=== PATIENT | male | born 1940 | race Caucasian/White ===

== ENCOUNTER 2020-05-02 19:09 | Emergency (ER) | payer OTHER ==
[~2020-05-02] VITALS: Ht 180.3 cm; Wt 99.8 kg
[2020-05-02] MEDS ORDERED: ENALAPRIL MALEA20 MG (19:26)
[2020-05-02] MEDS ORDERED: DYRENIUM50 MG (19:27)
[2020-05-02] MEDS ORDERED: CLONAZEPAM1 MG (19:27)
[2020-05-02] MEDS ORDERED: CYMBALTA60 MG (19:27)
[2020-05-02] MEDS ORDERED: TENORMIN25 MG (19:27)
[2020-05-02] MEDS ORDERED: ASPIR 8181 MG (19:27)
[2020-05-02] MEDS ORDERED: TRAZODONE HCL150 MG (19:28)
[2020-05-02] MEDS ORDERED: [UNRECOGNIZED DRUG - OTHER] (19:31)
== END 2020-05-02 23:59 | disposition home or self-care (01) ==
LOC: ER 19:09
DX: K29.60 Other gastritis without bleeding (principal); I16.1 Hypertensive emergency; I10 Essential (primary) hypertension; R51 Headache

== ENCOUNTER 2024-06-05 21:14 | Emergency (ER) | payer OTHER ==
[~2024-06-05] VITALS: Ht 188 cm; Wt 113.4 kg
[~2024-06-05 21:14] MED LIST: ASPIR 8181 MG; CLONAZEPAM1 MG; CYMBALTA60 MG; DYRENIUM50 MG; ENALAPRIL MALEA20 MG; TENORMIN25 MG; TRAZODONE HCL150 MG; [UNRECOGNIZED DRUG - OTHER]
[2024-06-05] MEDS ORDERED: METHYLPREDNISOLONE SOD SUCC 125 MG VIAL ONE (21:18)
[2024-06-05] MEDS ORDERED: PROZAC10 MG (21:31)
[2024-06-05] MEDS ORDERED: RINGERS SOLUTION,LACTATED 1,000 ML IV STA (21:45)
[2024-06-05] MEDS ORDERED: FLUMAZENIL 0.5 MG/5 ML ML IV STA (21:46)
[2024-06-05] MEDS ORDERED: FLUMAZENIL 0.5 MG/5 ML ML IV ONE (21:58)
[2024-06-05 23:23] LABS: HEMATOCRIT 41.1 % (39.0-48.0); HEMOGLOBIN 13.7 g/dL (13-16.00); MEAN CELL VOLUME 89.3 fL (80.0-100.00); MEAN CORPUSCULAR HEMOGLOBIN 29.8 pg (27.00-32.0); MEAN CORPUSCULAR HGB CONC 33.4 g/dl (32.0-36.0); PLATELET COUNT 202 K/uL (150-450); RED CELL DISTRIBUTION WIDTH 14.3 % (11.5-14.5)
[2024-06-05 23:49] LABS: ALBUMIN 3.5 gm/dL (3.4-5.0); BILIRUBIN TOTAL 0.36 mg/dL (0.3-1.2); CALCIUM 10.9 mg/dL (8.5-10.1); CREATININE SERUM 1.43 mg/dL (0.70-1.30); GFR 47.46; GLOBULINA 3.6 G/DL (2.4-3.5); POTASSIUM 4.11 mEq/L (3.5-5.1); TOTAL PROTEIN 7.1 gm/dL (6.4-8.2)
[2024-06-06] MEDS ORDERED: GENTAMICIN SULFA5 ML OTIC (03:08)
== END 2024-06-06 03:58 ==
LOC: ER 21:15
DX: T42.4X1A Poisoning by benzodiazepines, accidental (unintentional), initial encounter (principal); Y92.018 Other place in single-family (private) house as the place of occurrence of the external cause; R53.1 Weakness
CPT/HCPCS: 36415; 70450; 93005; 96365; 99284; J3490